=== PATIENT | female | born 1980 | race Two or more races ===

== ENCOUNTER 2020-09-18 09:57 | Outpatient (REF) | payer OTHER, SELFPAY ==
[2020-09-18 10:48] LABS: MANUAL DIFF FLAG NO
[2020-09-18 11:06] LABS: Basophils Percent Auto 0.4 % (0-2); Eosinophils Absolute Auto 0.2 X10*3/uL (0.0-0.4); Eosinophils Percent Auto 3.3 % (0-4); Hematocrit 38.1 % (37-47); Hemoglobin 12.1 g/dl (12.0-16.0); Imm Gran Abs Auto 0.02 X10*3/uL (0.00-0.03); Imm Gran Pct Auto 0.3 % (0.0-0.4); Lymphocytes Absolute Auto 1.7 X10*3/uL (1.2-4.9); Lymphocytes Percent Auto 24.4 % (20-40); Mean Corpuscular HGB Conc 31.8 g/dl (31.0-35.0); Mean Corpuscular Hemoglobin 25.5 pg (27.0-33.0); Mean Corpuscular Volume 80.2 fL (80-98); Monocytes Absolute Auto 0.7 X10*3/uL (0.1-1.2); Monocytes Percent Auto 10.7 % (2-11); Neutrophils Absolute Auto 4.2 X10*3/uL (2.0-8.3); Neutrophils Percent Auto 60.9 % (45-73); Platelet Count 330 X10*3/uL (160-400); Red Blood Count 4.75 X10*6/uL (4.20-5.50); Red Cell Distribution Width 13.7 % (11.0-16.0); White Blood Count 6.9 X10*3/uL (4.8-10.8)
[2020-09-18 11:17] LABS: Alanine Aminotransferase 14 U/L (0-31); Albumin Level 4.5 g/dL (3.5-5.0); Alkaline Phosphatase 72 U/L (39-117); Anion Gap 12 (12-20); Aspartate Amino Transferase 19 U/L (5-31); Bilirubin Total 0.5 mg/dL (0.0-1.0); Blood Urea Nitrogen 12 mg/dL (9-16); Calcium 9.3 mg/dL (8.4-10.2); Carbon Dioxide 27 mmol/L (22-29); Chloride 105 mmol/L (96-108); Cholesterol 208 mg/dL; Estimated Glomerular Filt Rate > 60; Glucose Fasting 96 mg/dL (60-99); HDL Cholesterol 56 mg/dL; LDL Cholesterol Calculated 134 mg/dl; Potassium 4.4 mmol/L (3.3-5.1); Sodium 140 mmol/L (135-145); Total Protein 7.1 g/dL (6.5-8.0); Triglycerides 91 mg/dL
[2020-09-18 11:40] LABS: Thyroid Stimulating Hormone 1.08 uIU/mL (0.32-4.0)
== END 2020-09-18 09:58 | disposition home or self-care (01) ==
LOC: HO.LAB 09:57
PROVIDERS: PCP Internal Medicine; Visit Provider Internal Medicine
DX: E66.01 Morbid (severe) obesity due to excess calories (principal); D64.9 Anemia, unspecified; L65.9 Nonscarring hair loss, unspecified; E78.5 Hyperlipidemia, unspecified
CPT/HCPCS: 36415; 80053; 80061; 84443; 85025

== ENCOUNTER 2020-10-24 13:21 | Outpatient (REF) | payer OTHER, SELFPAY ==
[2020-10-25 03:00] LABS: CT PCR NOT DETECTED (Not Detect.); NG PCR NOT DETECTED (Not Detect.)
[2020-10-25 09:45] LABS: BV Int Neg Control Negative (Negative); BV Int Pos Control Positive (Positive)
[2020-10-28 16:37] LABS: HPV mRNA E6/E7 rflx Not Detected (Not Detected)
== END 2020-10-24 13:22 | disposition home or self-care (01) ==
LOC: HO.LAB 13:21
PROVIDERS: PCP Internal Medicine; Visit Provider Advanced Practice Midwife
DX: Z01.419 Encounter for gynecological examination (general) (routine) without abnormal findings (principal); Z11.3 Encounter for screening for infections with a predominantly sexual mode of transmission; Z11.51 Encounter for screening for human papillomavirus (HPV); N92.6 Irregular menstruation, unspecified; N93.9 Abnormal uterine and vaginal bleeding, unspecified; L68.0 Hirsutism
CPT/HCPCS: 87480; 87491; 87510; 87591; 87624; 87660; 88142

== ENCOUNTER 2020-11-13 10:31 | Outpatient (REF) | payer OTHER, SELFPAY ==
--- NOTE | ~2020-11-13 | US_ITS ---
EXAMINATION: US PELVIS CLINICAL INFORMATION: Abnormal uterine vaginal bleeding. COMPARISON: None TECHNIQUE: Ultrasound of the pelvis is performed using both transabdominal and transvaginal transducers along with Doppler. Transvaginal imaging is performed due to inadequate visualization transabdominally. FINDINGS: The uterus measures 9 x 4 x 5 cm. Anteverted. Anteflexed. The endometrial thickness is measured by the new media strategist at 8 mm. The myometrium is heterogeneous. It could be a poorly defined 1.6 x 0.8 x 0.9 cm myometrial fibroid anterior mid body. This is hyperechoic and given the history, this could represent scarring. The right ovary is 3.7 x 2.2 x 2.4 cm. Volume 10 mL. There is a 2.5 x 1.6 x 1.6 cm cyst associated. Normal vascularity. The left ovary is 3.2 x 2.4 x 2.4 cm. Volume 10 mL. Normal-appearing. Normal ovarian vascularity. US/US pelvic and transvaginal IMPRESSION: Endometrial thickness 8 mm. This may be normal for mid to late phase of the cycle. Uterine echotexture is heterogeneous throughout but no defined fibroid. Focal area of hyperechogenicity in the mid body anterior could represent a focal fibroid described above versus changes associated with and scarring. Simple-appearing cyst associated with the right ovary 2.5 x 1.6 x 1.6 cm.
[2020-11-13 12:30] LABS: HCG Quantitative < 2 mIU/mL; Thyroid Stimulating Hormone 2.73 uIU/mL (0.32-4.0)
[2020-11-18 20:21] LABS: Prolactin 13.1 ng/mL
[2020-11-19 00:57] LABS: DHEA Sulfate 118 mcg/dL (23-266)
[2020-11-21 14:56] LABS: Testosterone, Free 7.9 pg/mL (0.1-6.4); Testosterone, Total 59 ng/dL (2-45)
== END 2020-11-13 10:32 | disposition home or self-care (01) ==
LOC: HO.US 10:31
PROVIDERS: PCP Internal Medicine; Visit Provider Advanced Practice Midwife
DX: N93.9 Abnormal uterine and vaginal bleeding, unspecified (principal); N92.6 Irregular menstruation, unspecified; L68.0 Hirsutism
CPT/HCPCS: 36415; 76830; 76856; 82627; 83498; 84146; 84402; 84403; 84443; 84702

== ENCOUNTER 2020-11-19 09:39 | Outpatient (REF) | payer OTHER, SELFPAY | END 2020-11-19 09:40 | disposition home or self-care (01) | LOC: HO.LAB 09:39 | PROVIDERS: PCP Internal Medicine; Visit Provider Advanced Practice Midwife | DX: N93.9 Abnormal uterine and vaginal bleeding, unspecified (principal) | CPT/HCPCS: 58100; 81025; 88305 ==

== ENCOUNTER 2020-11-20 16:09 | Outpatient (REF) | payer OTHER, SELFPAY ==
[2020-11-20 16:54] LABS: COVID-19 Test Negative (Negative); IDNOW Serial# 9DD0AD1C
== END 2020-11-20 16:10 | disposition home or self-care (01) ==
LOC: HO.LAB 16:09
PROVIDERS: Visit Provider Internal Medicine
DX: Z20.822 Contact with and (suspected) exposure to COVID-19 (principal)
CPT/HCPCS: 36415; 87635; C9803

== ENCOUNTER → 2020-11-27 15:45 | Outpatient (BNVA) | payer OTHER, SELFPAY | PROVIDERS: Visit Provider Advanced Practice Midwife ==

== ENCOUNTER 2020-12-19 08:44 | Outpatient (REF) | payer OTHER, SELFPAY ==
--- NOTE | ~2020-12-19 | MM_ITS ---
EXAMINATION: MM SCREENING DIGITAL BREAST TOMOSYNTHESIS, BILATERAL CLINICAL INFORMATION: Screening. Asymptomatic. The lifetime risk of breast cancer based on the Tyrer-Cuzick Model is 11.4%. COMPARISON: Mammography: None TECHNIQUE: Digital breast tomosynthesis is performed in both the craniocaudal and mediolateral oblique views along with computer-aided detection (CAD). Synthesized 2D images are generated from the tomosynthesis. FINDINGS: There are scattered areas of fibroglandular density (ACR BI-RADS breast composition Category b). There are no significant masses, abnormal calcifications, or other abnormalities. MM/MM tomosynthesis screening BI IMPRESSION: No specific mammographic evidence to suggest malignancy. ASSESSMENT: BI-RADS 1: Negative RECOMMENDATION: Routine annual mammography screening. This patient's information was entered into a reminder system with a target due date for their next mammogram.
== END 2020-12-19 08:45 | disposition home or self-care (01) ==
LOC: HO.MAMMO 08:44
PROVIDERS: Visit Provider Advanced Practice Midwife
DX: Z12.31 Encounter for screening mammogram for malignant neoplasm of breast (principal)
CPT/HCPCS: 77063; 77067

== ENCOUNTER 2021-12-22 15:58 | Outpatient (REF) | payer OTHER, SELFPAY ==
--- NOTE | ~2021-12-22 | MM_ITS ---
EXAMINATION: MM SCREENING DIGITAL BREAST TOMOSYNTHESIS, BILATERAL CLINICAL INFORMATION: Screening. Asymptomatic. The lifetime risk of breast cancer based on the Tyrer-Cuzick Model is 11%. COMPARISON: Mammography: 12/19/2020 (baseline) TECHNIQUE: Digital breast tomosynthesis is performed in both the craniocaudal and mediolateral oblique views along with computer-aided detection (CAD). Synthesized 2D images are generated from the tomosynthesis. FINDINGS: There are scattered areas of fibroglandular density (ACR BI-RADS breast composition Category b). There are no significant masses, abnormal calcifications, or other abnormalities. Breast tissue composition borders on predominantly fatty. Background stromal markings are normal. Parenchymal pattern is similar to baseline exam. The axilla and skin contours are unremarkable. MM/MM tomosynthesis screening BI IMPRESSION: No mammographic evidence of malignancy. ASSESSMENT: BI-RADS 1: Negative RECOMMENDATION: Routine annual mammography screening. This patient's information was entered into a reminder system with a target due date for their next mammogram.
== END 2021-12-22 15:59 | disposition home or self-care (01) ==
LOC: HO.MAMMO 15:58
PROVIDERS: Visit Provider Advanced Practice Midwife
DX: Z12.31 Encounter for screening mammogram for malignant neoplasm of breast (principal)
CPT/HCPCS: 77063; 77067

== ENCOUNTER 2022-04-08 14:45 | Outpatient (REF) | payer OTHER, SELFPAY ==
[2022-04-08 15:59] LABS: Alanine Aminotransferase 17 U/L (0-31); Albumin Level 4.7 g/dL (3.5-5.0); Alkaline Phosphatase 73 U/L (39-117); Anion Gap 15 (12-20); Aspartate Amino Transferase 33 U/L (5-31); Bilirubin Total 0.5 mg/dL (0.0-1.0); Blood Urea Nitrogen 18 mg/dL (9-16); Calcium 10.1 mg/dL (8.4-10.2); Carbon Dioxide 24 mmol/L (22-29); Chloride 103 mmol/L (96-108); Cholesterol 249 mg/dL; Estimated Glomerular Filt Rate > 60; Glucose Fasting 74 mg/dL (60-99); HDL Cholesterol 53 mg/dL; LDL Cholesterol Calculated 165 mg/dl; Potassium 4.3 mmol/L (3.3-5.1); Sodium 138 mmol/L (135-145); Total Protein 7.8 g/dL (6.5-8.0); Triglycerides 155 mg/dL
== END 2022-04-08 14:46 | disposition home or self-care (01) ==
LOC: HO.LAB 14:45
PROVIDERS: PCP Internal Medicine; Visit Provider Internal Medicine
DX: Z00.00 Encounter for general adult medical examination without abnormal findings (principal)
CPT/HCPCS: 36415; 80053; 80061

== ENCOUNTER → 2022-04-15 10:59 | Outpatient (BNVA) | payer OTHER, SELFPAY | PROVIDERS: PCP Internal Medicine; Visit Provider Advanced Practice Midwife | DX: Z13.89 Encounter for screening for other disorder (principal) ==

== ENCOUNTER 2022-05-20 14:18 | Outpatient (REF) | payer OTHER, SELFPAY ==
--- NOTE | ~2022-05-20 | US_ITS ---
EXAMINATION: US PELVIS CLINICAL INFORMATION: Abdominal distention; follow-up uterine fibroid; the last menstrual period was on 04/26/2022. COMPARISON: Pelvic ultrasound dated 11/13/2020. TECHNIQUE: Ultrasound of the pelvis is performed using both transabdominal and transvaginal transducers along with Doppler. Transvaginal imaging is performed due to inadequate visualization transabdominally. FINDINGS: Uterus: The uterus is anteverted and anteflexed. The uterus measures 8.9 x 4.3 x 4.2 cm. There is trace anechoic fluid noted within the endometrial canal. Nabothian cysts are seen within the cervix. The double wall endometrial thickness is 0.6 mm. The uterus is smooth in contour and has normal myometrial echogenicity. No visible fibroid. The previously identified fibroid is not redemonstrated. Adnexa: Both ovaries are visualized. There is normal color flow to the adnexa. There is no ovarian torsion. There is no pelvic ascites or fluid collection. Right ovary measures 4.4 x 3.1 x 2.9 cm, volume 20.7 mL. The right ovary contains a 3.3 x 2.8 x 2.3 cm dominant simple cyst. This is a benign finding, for which no imaging follow-up is recommended. Left ovary measures 2.4 x 2.3 x 2.0 cm, volume 5.8 mL. There are simple follicles, the largest measuring 7 mm, with exophytic appearance. US/US pelvic and transvaginal IMPRESSION: 1. No uterine fibroid is presently seen. 2. There are incidental bilateral ovarian cysts and follicles, for which no imaging follow-up is recommended. 3. There is trace nonspecific fluid within the endometrial canal. 4. Nabothian cysts are seen within the cervix.
== END 2022-05-20 14:19 | disposition home or self-care (01) ==
LOC: HO.US 14:18
PROVIDERS: Visit Provider Advanced Practice Midwife
DX: R14.0 Abdominal distension (gaseous) (principal)
CPT/HCPCS: 76830; 76856

== ENCOUNTER → 2022-06-11 13:15 | Outpatient (BNVA) | payer OTHER, SELFPAY | PROVIDERS: PCP Internal Medicine; Visit Provider Advanced Practice Midwife | DX: Z71.2 Person consulting for explanation of examination or test findings (principal); R14.0 Abdominal distension (gaseous) | CPT/HCPCS: 99212 ==

== ENCOUNTER 2023-02-01 15:16 | Outpatient (REF) | payer OTHER, SELFPAY ==
--- NOTE | ~2023-02-01 | MM_ITS ---
EXAMINATION: MM SCREENING DIGITAL BREAST TOMOSYNTHESIS, BILATERAL CLINICAL INFORMATION: Screening. Asymptomatic. COMPARISON: Mammography: This study is compared with prior exams dating back to 2020. TECHNIQUE: Digital breast tomosynthesis is performed in both the craniocaudal and mediolateral oblique views along with computer-aided detection (CAD). Synthesized 2D images are generated from the tomosynthesis. FINDINGS: The breasts are almost entirely fatty (ACR BI-RADS breast composition Category a). There are no significant masses, abnormal calcifications, or other abnormalities. MM/MM tomosynthesis screening BI IMPRESSION: No mammographic evidence of malignancy. ASSESSMENT: BI-RADS BI-RADS 1 - Negative RECOMMENDATION: Routine annual mammography screening. 1 year F/U This examination should not preclude the clinical evaluation of a suspicious palpable abnormality. This patient's information was entered into a reminder system with a target due date for their next mammogram.
== END 2023-02-01 15:17 | disposition home or self-care (01) ==
LOC: HO.MAMMO 15:16
PROVIDERS: PCP Internal Medicine; Visit Provider Advanced Practice Midwife
DX: Z12.31 Encounter for screening mammogram for malignant neoplasm of breast (principal)
CPT/HCPCS: 77063; 77067

== ENCOUNTER → 2023-02-01 15:45 | Outpatient (BNV) | payer OTHER, SELFPAY | PROVIDERS: PCP Internal Medicine; Visit Provider Radiology Diagnostic Radiology | DX: Z12.31 Encounter for screening mammogram for malignant neoplasm of breast (principal) | CPT/HCPCS: 77063; 77067 ==

== ENCOUNTER 2023-04-05 17:01 | Outpatient (AMB) | payer OTHER, SELFPAY ==
[2023-04-05 17:02] VITALS: BP 122/84; BMI 48.6
--- NOTE | 2023-04-05 17:02 | MHC.PC.OV ---
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 Glass Required: No Accompanied by: Self / Same As Patient Allergies drospirenone [From IZZY (28)] Adverse Reaction (Unknown, Verified 04/05/23 17:07) Palpitations ethinyl estradiol [From IZZY (28)] Adverse Reaction (Unknown, Verified 04/05/23 17:07) Palpitations Medication List - Last Reconciled 04/05/23 by Mallory Chacon MD atorvastatin 10 mg PO BEDTIME 90 days spironolactone 50 mg PO BID Tobacco use date assessed: 04/05/23 Dental Screening Dental Screen Date: 04/05/23 Did you have a dental visit in the last 12 months?: No Did you have a dental problem in the last 6 months where you did not have access to dental care?: No Was dental information given to patient?: Patient has dentist HPI HPI Comments History of Present Illness Details This is a 42-year-old female with morbid obesity that comes for her physical exam. Her BMI is 48.6 and was advised to diet and exercise. She declines weight loss surgery. Last mammogram was January 2023. Last Pap smear was 2020 and was normal. No chest pain or shortness of breath. [facility] Medical History PCOS (polycystic ovarian syndrome) Hair loss Morbid obesity Surgical History Hx of section History of tonsillectomy Family History Father Hypertension Mother Hypertension Glaucoma Sister Diabetes Paternal Uncle FH: prostate cancer Social History Housing: Apartment Alcohol intake: current Alcohol intake frequency: holidays/special occasions only Alcohol type: beer and wine Patient Tobacco Use Status: Never used Tobacco e-Cigarette/Vaping Use: Never Used Second Hand Smoke Exposure: No service: No Current occupational status: employed Current occupational exposures/hazards: No Sexual orientation: Straight/Heterosexual Gender identity: Female Cognitive needs: No Hearing needs: No Vision needs: No Female Reproductive History Menstrual Age of Menarche: 11 Questionnaire PHQ-9 Over the last 2 weeks, how often have you been bothered by any of the following problems? 1. Little interest or pleasure in doing things: not at all 2. Feeling down, depressed, or hopeless: not at all 3. Trouble falling or staying asleep, or sleeping too much: not at all 4. Feeling tired or having little energy: not at all 5. Poor appetite or overeating: not at all 6. Feeling bad about yourself - or that you are a failure or have let yourself or your family down: not at all 7. Trouble concentrating on things, such as reading the newspaper or watching television: not at all 8. Moving or speaking so slowly that other people could have noticed. Or the opposite - being so fidgety or restless that you have been moving around a lot more than usual: not at all 9. Thoughts that you would be better off or of hurting yourself in some way: not at all Total score: 0 Depression Screening Interpretation: Negative Depression Screening Done: Yes 60918 - PHQ-9 Billing: Yes Source: Developed by Drs. Nael Hooker, Maye Farley, Edmar Pena and colleagues, with an educational fred from [employer]. Thrive Questionnaire Date Thrive assessed: 04/05/23 I am a: Patient What is your living situation today?: I have a steady place to live Within the past 12 months, did the food you bought not last and you didn't have the money to get more?: Never true Within the past 12 months, did you worry whether your food would run out before you got money to buy more?: Never true Do you have trouble paying for medicines?: No Do you have trouble getting transportation to medical appointments?: No Do you have trouble paying your heating and electricity bill?: No Do you have trouble taking care of your child, family member or friend?: No Do you have trouble with day-to-day activities such as bathing, preparing meals, shopping, managing finances, etc.?: No Are you currently unemployed and looking for a job?: No Are you interested in more education?: No Please select the resources that you would like help with: None Currently or been in a relationship where the following occur: no concerns reported AUDIT C Alcohol Use Questionnaire (AUDIT-C) 1. How often do you have a drink containing alcohol?: Monthly or less 2. How many drinks containing alcohol do you have on a typical day when you are drinking?: 1 or 2 3. How often do you have six or more drinks on one occasion?: Never Total Score: 1 Score Reviewed/Action Taken: No ANAND-7 AMB Questionnaire ANAND-7 Date ANAND - 7 assessed: 04/05/23 Feeling nervous, anxious, or on edge: 0 = Not at all Not being able to stop or control worryin = Not at all Worrying too much about different things: 0 = Not at all Trouble relaxin = Not at all Being so restless that it is hard to sit still: 0 = Not at all Becoming easily annoyed or irritable: 0 = Not at all Feeling afraid as if something awful might happen: 0 = Not at all Total ANAND-7 score (0-4 normal; 5-9 mild; 10-14 moderate; 15-21 severe): 0 Source: Developed by Drs. Nael Hooker, Maye Farley, Edmar Pena and colleagues, with an educational fred from [employer]. ANAND-7 Assessment Billing ANAND-7 Assessment Tool: ANAND-7 Assessment 65084 Review of Systems Const All systems reviewed & are unremarkable except as noted in HPI and below Eyes Reports no additional complaints, Denies change in vision and Denies other visual disturbances Card Denies chest pain at rest, Denies chest pain with activity, Denies edema, Denies irregular heart rhythm, Denies claudication, Denies dyspnea, Denies dyspnea on exertion, Denies orthopnea, Denies paroxysmal nocturnal dyspnea and Denies slow heart rate Resp Denies cough, Denies dyspnea and Denies dyspnea on exertion GI Denies abdominal pain, Denies change in bowel habits, Denies excessive flatus, Denies nausea and Denies vomiting Denies urinary incontinence, Denies urinary hesitancy and Denies urinary urgency Musc Denies abnormal gait, Denies atrophy, Denies deformity and Denies limited range of motion Skin/Breast Denies bleeding lesions, Denies changing lesions and Denies rash Neuro Denies abnormal gait and Denies lack of coordination Physical exam (Primary Care) Vital Signs: Last Vital Signs BP 122/84 04/05/23 17:02 BMI result Body Mass Index 48.6 Tobacco/Smoking Status: Tobacco use Status Tobacco use date assessed 04/05/23 04/05/23 17:08 Patient Tobacco Use Status Never used Tobacco 04/05/23 17:08 e-Cigarette/Vaping Use Never Used 04/05/23 17:08 PHQ-9: PHQ-9 Score PHQ-9: Total score 0 04/05/23 17:22 Depression Screening Interpretation: Negative Thrive Assessment: Date of Thrive Assessment Date Thrive assessed 04/05/23 04/05/23 17:08 Currently or been in a relationship where the following occur: no concerns reported Const Orientation/consciousness: patient oriented x3 HENMT Head: Yes normal to inspection, Yes normocephalic and Yes atraumatic Ears: external ears normal Eyes General: appearance normal, both eyes and all related structures Eyelids: Yes eyelids normal Conjunctivae: conjunctivae normal Neck Neck: Yes normal visual inspection and Yes supple Resp Effort & Inspection: normal respiratory effort Auscultation: clear to auscultation bilaterally Cardio Jugular venous distension: no JVD Rate: regular rate Rhythm: regular rhythm Heart sounds: S1 normal heart sound present and S2 normal heart sound present GI Inspection: Yes normal to inspection Palpation (GI): Soft to palpation and nontender Auscultation: normal bowel sounds Skin General skin exam: no rashes or lesions noted Neuro General: patient oriented x3 and no focal motor deficits Extrem General: Yes full ROM Psych Appearance: grossly normal Office Procedures Flu Questionnaire Does the patient have a severe egg allergy?: No Does the patient have severe life threatening allergies?: No Does the patient have a fever or illness today?: No Has the patient ever had Guillain-[place] Syndrome?: No Has the patient ever had any past reaction to a flu shot?: No Immunizations flu vacc [id number] 6mos up(PF) 60 mcg(15 mcgx4)/0.5 mL IM syringe Performing Provider: Mallory Chacon MD Performing Location: [facility] Administered by: LUIS Washington on 04/05/23 17:22 Dose Route Admin Location Dispensed Lot Number Expiration Date NDC Casework Manager 0.5 mL IM Right Deltoid 0.5 mL [id number] 09/26/23 27993-150-73 [employer] VIS Given Date VIS Provided VIS Publication Date 04/05/23 Single Vaccine 20 Eligibility Eligibility Date Funding Source Not [facility] Eligible 04/05/23 Private Assessment and Plan Assessment & Plan (1) Encounter for physical examination: Code(s): Z00.00 - Encounter for general adult medical examination without abnormal findings Plan: Repeat in a year. (2) Morbid obesity: Code(s): E66.01 - Morbid (severe) obesity due to excess calories Plan: Start diet and exercise. BMI goal is less than 30. Orders: Orders Lipid Panel Today E78.5 - Hyperlipidemia, unspecified, Z00.00 - Encounter for general adult medical examination without abnormal findings Comprehensive [place]. Panel Fast Today Z00.00 - Encounter for general adult medical examination without abnormal findings Influenza [id number] Immunization Today Z23 - Encounter for immunization Vitamin D 25-OH Total Today E55.9 - Vitamin D deficiency, unspecified Coding Level of Care Code Est Pt Prev Care 40-64y(85478) Diagnoses Encounter for physical examination Z00.00 Morbid obesity E66.01 Additional Codes ANAND-7 Assessment Billing - ANAND-7 Assessment Tool: ANAND-7 Assessment [id number] ([id number]) Time Spent (min) 32
== END 2023-04-05 17:21 | disposition home or self-care (01) ==
PROVIDERS: Visit Provider Internal Medicine
DX: Z00.00 Encounter for general adult medical examination without abnormal findings (principal); E66.01 Morbid (severe) obesity due to excess calories; Z68.42 Body mass index [BMI] 45.0-49.9, adult; Z23 Encounter for immunization; Z90.89 Acquired absence of other organs
CPT/HCPCS: 90471; 90686; 99396

== ENCOUNTER 2023-04-22 07:24 | Outpatient (REF) | payer OTHER, SELFPAY ==
[2023-04-22 08:53] LABS: Alanine Aminotransferase 23 U/L (0-31); Albumin Level 4.5 g/dL (3.5-5.0); Alkaline Phosphatase 58 U/L (39-117); Anion Gap 13 (12-20); Aspartate Amino Transferase 25 U/L (5-31); Bilirubin Total 0.6 mg/dL (0.0-1.0); Blood Urea Nitrogen 11 mg/dL (9-16); Calcium 9.9 mg/dL (8.4-10.2); Carbon Dioxide 25 mmol/L (22-29); Chloride 104 mmol/L (96-108); Cholesterol 137 mg/dL (<200); Estimated Glomerular Filt Rate > 60; Glucose Fasting 79 mg/dL (60-99); HDL Cholesterol 39 mg/dL (>40); LDL Cholesterol Calculated 84 mg/dL (<100); Potassium 4.2 mmol/L (3.3-5.1); Sodium 138 mmol/L (135-145); Total Protein 7.7 g/dL (6.5-8.0); Triglycerides 70 mg/dL (<150)
[2023-04-22 09:01] LABS: Vitamin D 25-OH Total 25.1 ng/mL (>30)
[2023-04-23 09:25] LABS: BV Int Neg Control Negative (Negative); BV Int Pos Control Positive (Positive)
== END 2023-04-22 07:25 | disposition home or self-care (01) ==
LOC: HO.LAB 07:24
PROVIDERS: Advanced Practice Midwife; PCP Internal Medicine; Visit Provider Internal Medicine
DX: N89.8 Other specified noninflammatory disorders of vagina (principal); E78.5 Hyperlipidemia, unspecified; E55.9 Vitamin D deficiency, unspecified
CPT/HCPCS: 36415; 80053; 80061; 82306; 87480; 87510; 87660; 99396

== ENCOUNTER 2023-04-22 10:57 | Outpatient (AMB) | payer OTHER, SELFPAY ==
--- NOTE | 2023-04-22 11:03 | A.OFFVIS_ITS ---
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 Doing well with no concerns. She tries to eat healthy and stays active with exercise. History of PCOS. Regular monthly menses while on Spironolactone-ordered by her wellness nurse rn. Currently is not sexually active in over 3 years. She admit to vaginal itching and irritation. STI screening offered; she declined. Denies family history of breast, ovarian or colon cancer. Last pap smear 2020, negative. Mammogram: 2022. [facility] Medical History PCOS (polycystic ovarian syndrome) Hair loss Morbid obesity Surgical History Hx of section History of tonsillectomy Family History Father Hypertension Mother Hypertension Glaucoma Sister Diabetes Paternal Uncle FH: prostate cancer Social History Housing: Apartment Alcohol intake: current Alcohol intake frequency: holidays/special occasions only Alcohol type: beer and wine Patient Tobacco Use Status: Never used Tobacco e-Cigarette/Vaping Use: Never Used Second Hand Smoke Exposure: No service: No Current occupational status: employed Current occupational exposures/hazards: No Sexual orientation: Straight/Heterosexual Gender identity: Female Cognitive needs: No Hearing needs: No Vision needs: No Female Reproductive History Menstrual Age of Menarche: 11 Duration of menses: 6-7 days Date of last menstrual period: 03/31/23 control method: none Total pregnancies: 1 Full term: 1 Number of Living Children: 1 Date of last pap smear: 10/24/20 (neg pap and hpv) Date of Mammogram: 02/01/23 (Birad 1) Review of Systems Const All systems reviewed & are unremarkable except as noted in HPI and below Reports as per HPI Eyes Reports no additional complaints ENT Reports no additional complaints Card Reports no additional complaints Resp Reports no additional complaints GI Reports as per HPI and Reports no additional complaints Reports as per HPI Musc Reports no additional complaints Skin/Breast Reports as per HPI Neuro Reports no additional complaints Psych Reports no additional complaints Endo Reports no additional complaints Gerardo/Lymph Reports no additional complaints Aller/Immun Reports no additional complaints Physical Exam Vital Signs: Last Vital Signs BP 114/72 04/22/23 11:04 BMI result Body Mass Index 44.8 Const General: cooperative, healthy appearing, no acute distress, well developed and alert Orientation/consciousness: patient oriented x3 HEENT Head: Yes normal to inspection Eyes General: appearance normal, both eyes and all related structures Neck Neck: Yes normal visual inspection Thyroid: Thyroid normal Chest Chest palpation & inspection: normal inspection of the chest and other (no puckering, dimpling, peau de orange, retraction, discharge, masses) Breast/axilla inspection: normal inspection of the breasts Breast/axilla palpation: normal palpation of the breasts Resp Effort & Inspection: normal respiratory effort GI Inspection: Yes normal to inspection Palpation (GI): Soft to palpation Rectal Exam - Female: deferred Other: Bilateral labial erythema and mild edema, shaven. General: Yes bladder normal to palpation External Female Exam: normal external appearance and normal appearance of the urethra Speculum Exam - Vagina: normal appearance of the vagina, normal palpation and abnormal vaginal discharge (White and clumpy) Speculum Exam - Cervix: normal appearance of the cervix and normal palpation Bimanual exam- vagina & uterus: normal bimanual exam, normal palpation, uterine size normal, bladder normal to palpation, normal palpation and non-tender Bimanual Exam- Adnexa, other: no masses Skin General skin exam: no rashes or lesions noted Rashes: no rashes Neuro General: patient oriented x3 Cognition (Neuro): normal cognition Extrem General: Yes normal to inspection Psych Attitude: cooperative Thought process: Normal thought process present Assessment & Plan Assessment & Plan (1) Encounter for well woman exam with routine gynecological exam: Code(s): Z01.419 - Encounter for gynecological examination (general) (routine) without abnormal findings (2) Vaginal yeast infection: Code(s): B37.31 - Acute candidiasis of vulva and vagina Plan Discussed: Current recommendations for pap smears per ASCCP guidelines. Breast awareness and periodic breast exams. Maintain a healthy lifestyle including a well balanced diet and routine exercise. Use condoms for STI and prevention if becomes sexually active, call for appointment for control consult. Mammogram yearly. Colonoscopy >45, or at risk sooner. Discussed: Monitor menstrual cycles, report any unscheduled bleeding, bleeding episodes <21 days apart or heavy/prolonged menstrual bleeding. Call the office for a follow up for any concerns. Denies any contraindications to Diflucan use, Rx sent in. Instructions: Clean with warm water, no soaps, shaving or scented products. Wear loose, cotton underclothes, avoid tight outer clothing. Air when possible. No coitus until well healed. Complete all medications as prescribed. Await final pending results for any changes in the plan of care. Call the office if there is no improvement in 24-48hrs., or if worsening symptoms. All of her questions and concerns were addressed to the best of my ability. 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 This note is constructed using voice recognition software. While every effort has been made to ensure accuracy, audograph operator errors may have been included. Orders: Orders Bacterial Vaginosis Panel Today N89.8 - Other specified noninflammatory disorders of vagina Medications: New fluconazole 150 mg PO ONCE 1 day 1 tab 1RF personal Coding Level of Care Code Est Pt Prev Care 40-64y(94789) Diagnoses Encounter for well woman exam with routine gynecological exam Z01.419 Vaginal yeast infection B37.31
[2023-04-22 11:04] VITALS: BP 114/72; BMI 44.8
== END 2023-04-22 11:43 | disposition home or self-care (01) ==
PROVIDERS: Visit Provider Advanced Practice Midwife
DX: Z01.419 Encounter for gynecological examination (general) (routine) without abnormal findings (principal); B37.31 Acute candidiasis of vulva and vagina
CPT/HCPCS: 99396

== ENCOUNTER 2024-02-07 14:51 | Outpatient (REF) | payer OTHER, SELFPAY ==
--- NOTE | ~2024-02-07 | MM_ITS ---
EXAMINATION: MM SCREENING DIGITAL BREAST TOMOSYNTHESIS, BILATERAL CLINICAL INFORMATION: Screening. Asymptomatic. COMPARISON: Mammography: Comparison is made with available priors TECHNIQUE: Digital breast mammography with tomosynthesis is performed in both the craniocaudal and mediolateral oblique views along with computer-aided detection (CAD). FINDINGS: There are scattered areas of fibroglandular density (ACR BI-RADS breast composition Category b). There are no significant masses, abnormal calcifications, or other abnormalities. MM/MM tomosynthesis screening BI IMPRESSION: No mammographic evidence of malignancy. ASSESSMENT: BI-RADS BI-RADS 1 - Negative RECOMMENDATION: Routine annual mammography screening. 1 year F/U This examination should not preclude the clinical evaluation of a suspicious palpable abnormality. This patient's information was entered into a reminder system with a target due date for their next mammogram. Electronically signed by: Tammie Moreira DO 02/16/2024 12:07 PM [facility]
== END 2024-02-07 14:52 | disposition home or self-care (01) ==
LOC: HO.MAMMO 14:51
PROVIDERS: PCP Internal Medicine; Visit Provider Internal Medicine
DX: Z12.31 Encounter for screening mammogram for malignant neoplasm of breast (principal)
CPT/HCPCS: 77063; 77067

== ENCOUNTER → 2024-02-07 15:15 | Outpatient (BNV) | payer OTHER, SELFPAY | PROVIDERS: PCP Internal Medicine; Visit Provider Internal Medicine | DX: Z12.31 Encounter for screening mammogram for malignant neoplasm of breast (principal) | CPT/HCPCS: 77063; 77067 ==

== ENCOUNTER 2024-04-06 17:18 | Outpatient (AMB) | payer OTHER, SELFPAY ==
--- NOTE | 2024-04-06 17:29 | MHC.PC.OV ---
Vital Signs 04/06/24 17:31 Height 5 ft 4 in Weight 252 lb BMI 43.3 BP 122/80 Blood Pressure Location Lt brachial Position Sitting Intake Visit Reasons: pe Intake Note: Patient here for a physical exam Paint Tester Required: No Accompanied by: Self / Same As Patient Allergies drospirenone [From IZZY (28)] Adverse Reaction (Unknown, Verified 04/06/24 17:42) Palpitations ethinyl estradiol [From IZZY (28)] Adverse Reaction (Unknown, Verified 04/06/24 17:42) Palpitations Medication List - Last Reconciled 04/06/24 by Mallory Chacon MD atorvastatin 10 mg PO BEDTIME 90 days cholecalciferol (vitamin D3) 25 mcg PO DAILY 90 days spironolactone 100 mg PO DAILY Tobacco use date assessed: 04/06/24 Dental Screening Dental Screen Date: 04/06/24 Did you have a dental visit in the last 12 months?: Yes Did you have a dental problem in the last 6 months where you did not have access to dental care?: No Was dental information given to patient?: Patient has dentist HPI HPI Comments History of Present Illness Details The patient is a 43-year-old female presenting for her physical exam. She reported experiencing discomfort in both feet, with more significant pain in the right foot, following physical activity, such as walking. The discomfort does not occur during the walk but begins when she resumes walking after rest. She experiences substantial irritation that persists post-activity. She has a history of using comfortable shoes during physical activities, but this has not alleviated her symptoms. There have been no previous interventions documented for this condition. Mammogram done in January which was negative. Pap smear done 2020. She is morbidly obese and was advised to diet and exercise. Declines bariatric surgery. - Discussion regarding screening intervals for mammography and Pap smear, with a noted negative Pap smear allowing for a reduced frequency of the test. - Patient is on atorvastatin 10 mg for cholesterol management. - Vitamin D supplementation and spironolactone 100 mg for PCOS. - Advised on annual pelvic examination. [facility] Medical History (Updated 04/06/24 @ 17:52 by Mallory Chacon MD) PCOS (polycystic ovarian syndrome) Hair loss Morbid obesity Surgical History Hx of section History of tonsillectomy Family History Father Hypertension Mother Hypertension Glaucoma Sister Diabetes Paternal Uncle FH: prostate cancer Social History Housing: Apartment Alcohol intake: current Alcohol intake frequency: holidays/special occasions only Alcohol type: beer and wine Patient Tobacco Use Status: Never used Tobacco e-Cigarette/Vaping Use: Never Used Second Hand Smoke Exposure: No service: No Current occupational status: employed Current occupational exposures/hazards: No Sexual orientation: Straight/Heterosexual Gender identity: Female Cognitive needs: No Hearing needs: No Vision needs: No Female Reproductive History Menstrual Age of Menarche: 11 Questionnaire PHQ-9 Over the last 2 weeks, how often have you been bothered by any of the following problems? 1. Little interest or pleasure in doing things: not at all 2. Feeling down, depressed, or hopeless: not at all 3. Trouble falling or staying asleep, or sleeping too much: not at all 4. Feeling tired or having little energy: not at all 5. Poor appetite or overeating: not at all 6. Feeling bad about yourself - or that you are a failure or have let yourself or your family down: not at all 7. Trouble concentrating on things, such as reading the newspaper or watching television: not at all 8. Moving or speaking so slowly that other people could have noticed. Or the opposite - being so fidgety or restless that you have been moving around a lot more than usual: not at all 9. Thoughts that you would be better off or of hurting yourself in some way: not at all Total score: 0 Depression Screening Interpretation: Negative Depression Screening Done: Yes 50303 - PHQ-9 Billing: Yes Source: Developed by Drs. Nael Hookre, Maye Farley, Edmar Pena and colleagues, with an educational fred from [employer]. Thrive Questionnaire Date Thrive assessed: 04/06/24 I am a: Patient What is your living situation today?: I have a steady place to live Within the past 12 months, did the food you bought not last and you didn't have the money to get more?: Never true Within the past 12 months, did you worry whether your food would run out before you got money to buy more?: Never true Do you have trouble paying for medicines?: No Do you have trouble getting transportation to medical appointments?: No Do you have trouble paying your heating and electricity bill?: No Do you have trouble taking care of your child, family member or friend?: No Do you have trouble with day-to-day activities such as bathing, preparing meals, shopping, managing finances, etc.?: No Are you currently unemployed and looking for a job?: No Are you interested in more education?: No Please select the resources that you would like help with: None THRIVE Score: 0 AUDIT C Alcohol Use Questionnaire (AUDIT-C) 1. How often do you have a drink containing alcohol?: Monthly or less 2. How many drinks containing alcohol do you have on a typical day when you are drinking?: 1 or 2 3. How often do you have six or more drinks on one occasion?: Never Total Score: 1 Score Reviewed/Action Taken: No ANAND-7 AMB Questionnaire ANAND-7 Date ANAND - 7 assessed: 04/06/24 Feeling nervous, anxious, or on edge: 1 = Several days Not being able to stop or control worryin = Not at all Worrying too much about different things: 0 = Not at all Trouble relaxin = Not at all Being so restless that it is hard to sit still: 0 = Not at all Becoming easily annoyed or irritable: 0 = Not at all Feeling afraid as if something awful might happen: 0 = Not at all Total ANAND-7 score (0-4 normal; 5-9 mild; 10-14 moderate; 15-21 severe): 1 Source: Developed by Drs. Nael Hooker, Maye Farley, Edmar Pena and colleagues, with an educational fred from [employer]. ANAND-7 Assessment Billing ANAND-7 Assessment Tool: ANAND-7 Assessment 90886 Review of Systems Const All systems reviewed & are unremarkable except as noted in HPI and below Card Denies chest pain at rest, Denies chest pain with activity, Denies edema, Denies irregular heart rhythm, Denies claudication, Denies dyspnea, Denies dyspnea on exertion, Denies orthopnea, Denies paroxysmal nocturnal dyspnea and Denies slow heart rate Resp Denies cough, Denies dyspnea and Denies dyspnea on exertion Denies urinary incontinence, Denies urinary hesitancy and Denies urinary urgency Musc Denies atrophy, Denies deformity and Denies limited range of motion Skin/Breast Denies bleeding lesions, Denies changing lesions and Denies rash Physical exam (Primary Care) Vital Signs: Last Vital Signs BP 122/80 04/06/24 17:31 BMI result Body Mass Index 43.3 BMI Assessment/Plan discussion: High BMI High, discussed plan: lifestyle, weight reduction, dietary and physical activity Tobacco/Smoking Status: Tobacco use Status Tobacco use date assessed 04/06/24 04/06/24 17:38 Patient Tobacco Use Status Never used Tobacco 04/06/24 17:38 e-Cigarette/Vaping Use Never Used 04/06/24 17:38 PHQ-9: PHQ-9 Score PHQ-9: Total score 0 04/06/24 17:46 Depression Screening Interpretation: Negative Thrive Assessment: Date of Thrive Assessment Date Thrive assessed 04/06/24 04/06/24 17:38 [facility] Head: Yes normal to inspection, Yes normocephalic and Yes atraumatic Ears: external ears normal Mouth: lip normal Eyes General: appearance normal, both eyes and all related structures Eyelids: Yes eyelids normal Conjunctivae: conjunctivae normal Neck Neck: Yes normal visual inspection and Yes supple Resp Effort & Inspection: normal respiratory effort Auscultation: clear to auscultation bilaterally Cardio Jugular venous distension: no JVD Rate: regular rate Rhythm: regular rhythm Heart sounds: S1 normal heart sound present and S2 normal heart sound present GI Inspection: Yes normal to inspection Palpation (GI): Soft to palpation and nontender Auscultation: normal bowel sounds Skin General skin exam: no rashes or lesions noted Neuro General: no focal motor deficits Extrem General: Yes full ROM Psych Appearance: grossly normal Office Procedures Flu Questionnaire Does the patient have a severe egg allergy?: No Immunizations Fluarix Triv [id number] (PF) 45 mcg (15 mcg x 3)/0.5 mL IM syringe Performing Provider: Mallory Chacon MD [facility] Documented (not given) by: LUIS [place] on 04/06/24 17:40 Reason Not Given: Patient Refused Coding Level of Care Code Est Pt Level 3 (67023) Est Pt Prev Care 40-64y(44018) Diagnoses Encounter for physical examination Z00.00 Morbid obesity E66.01 Right foot pain M79.671 Left foot pain M79.672 Additional Codes ANAND-7 Assessment Billing - ANAND-7 Assessment Tool: ANAND-7 Assessment 84786 ([id number]) PHQ-9 - 18113 - PHQ-9 Billing: Yes ([id number]) Time Spent (min) 31 Assessment & Plan Assessment & Plan (1) Encounter for physical examination: Code(s): Z00.00 - Encounter for general adult medical examination without abnormal findings Category: Medical (2) Morbid obesity: Code(s): E66.01 - Morbid (severe) obesity due to excess calories Category: Medical (3) Right foot pain: Code(s): M79.671 - Pain in right foot Category: Medical (4) Left foot pain: Code(s): M79.672 - Pain in left foot Category: Medical Plan - Imaging x-ray) of both feet to assess for potential inflammation or other structural abnormalities. - Continue current management of hyperlipidemia and PCOS with atorvastatin and spironolactone. - Annual follow-up for pelvic examination; Pap smear every five years due to previous negative results. - Reevaluate based on imaging results and consider orthopedic or podiatric referral if discomfort persists. Patient was informed and verbally consented to the use of an ambient scribe for clinic note documentation during this visit. I discussed with the patient the plan to obtain x-rays of both feet to investigate the cause of her foot discomfort further. We reviewed the frequency of Pap smears and ensured compliance with current guidelines. I emphasized the continuation of her current medication regimen for hyperlipidemia and PCOS, stressing the importance of long-term management. We agreed on the need for an annual pelvic exam and reviewed the potential need for further specialist evaluation depending on the outcomes of the foot imaging. Orders: Orders Influenza [id number] Immunization Today Z23 - Encounter for immunization Vitamin D 25-OH Total Today E55.9 - Vitamin D deficiency, unspecified XR foot LT 2V Today M79.672 - Pain in left foot Lipid Panel Today E78.5 - Hyperlipidemia, unspecified Comprehensive [place]. Panel Fast Today Z00.00 - Encounter for general adult medical examination without abnormal findings XR foot RT 2V Today M79.671 - Pain in right foot Patient Instructions: - Maintain current medication regimen as prescribed. - Attend scheduled imaging appointment for foot evaluation. - Continue wearing comfortable footwear and monitor any changes in symptoms. - Follow up for annual pelvic examination and routine health maintenance. - Report any worsening of symptoms or new concerns promptly.
[2024-04-06 17:31] VITALS: BP 122/80; BMI 43.3
== END 2024-04-06 17:52 | disposition home or self-care (01) ==
PROVIDERS: PCP Internal Medicine; Visit Provider Internal Medicine
DX: Z00.00 Encounter for general adult medical examination without abnormal findings (principal); M79.671 Pain in right foot; M79.672 Pain in left foot; E66.01 Morbid (severe) obesity due to excess calories; Z68.41 Body mass index [BMI] 40.0-44.9, adult

== ENCOUNTER → 2024-04-06 17:18 | Outpatient (BNVA) | payer OTHER, SELFPAY | PROVIDERS: PCP Internal Medicine; Visit Provider Internal Medicine | DX: Z00.00 Encounter for general adult medical examination without abnormal findings (principal); E66.01 Morbid (severe) obesity due to excess calories; M79.671 Pain in right foot; M79.672 Pain in left foot; Z68.41 Body mass index [BMI] 40.0-44.9, adult | CPT/HCPCS: 96127; 99212; 99396 ==

== ENCOUNTER 2024-07-19 10:52 | Outpatient (REF) | payer OTHER, SELFPAY ==
--- NOTE | ~2024-07-19 | XR_ITS ---
CLINICAL HISTORY: M79.671 - Pain in right foot Three views of each foot Comparison: None Findings: Right foot: Bones intact. No dislocations. No significant loss of joint space. Osteophytes noted arising from the calcaneus. There is also a somewhat prominent osteophyte along the medial cuneiform dorsally, lateral view. No ankle effusion. No radiopaque foreign body. Left foot: Bones intact. No dislocations. No significant loss of joint space. Calcaneal osteophytes noted. No ankle effusion. No radiopaque foreign body. IMPRESSION: 1. No acute findings. 2. Chronic changes bilaterally. This document has been electronically signed by: Steve Scott MD on 07/20/2024 21:17:23
--- OUTSIDE RECORDS SUMMARY | 2024-07-19 13:02 | XMS_ITS | Clinical Summary ---
Author Organization [employer] Address [address] [facility] 7 [place] [address] Care Team Providers Care Refractory Grinder Operator Name Role Phone Unavailable Primary Care Provider Unavailabl e Allergies No known active allergies Medications atorvastatin (Lipitor) 10 MG tablet Take 10 mg by mouth at bedtime. 05/09/2023 Active spironolactone (Aldactone) 50 MG tablet Take 50 mg by mouth 2 times daily. 08/15/2023 Active D3-1000 25 MCG (1000 UT) capsule Take 25 mcg by mouth Once per day. 07/19/2023 Active clonazePAM (KlonoPIN) 0.5 MG tablet Take 0.5 tablets (0.25 mg) by mouth 2 times daily. 30 tablet 09/09/2023 Active ibuprofen 600 MG tablet Take 1 tablet (600 mg) by mouth every 6 (six) hours if needed for mild pain for up to 20 doses. 20 tablet 09/09/2023 Active Active Problems Problem Noted Date Diagnosed Date Dental calculus 09/09/2023 MPDS (myofascial pain dysfunction syndrome) 08/27 Social History Tobacco Use Types Packs/Day Years Used Date Smoking Tobacco: Never Smokeless Tobacco: Never Tobacco Cessation:Counseling Given: Not Answered Comments Unknown Sex and Gender Information Value Date Recorded Sex Assigned at Female 01/26/2022 10:31 AM EDT Legal Sex Female 10:31 AM EDT Gender Identity Female 01/26/2022 10:31 AM EDT Sexual Orientation Choose not to disclose 2021 10:31 AM EDT Last Filed Vital Signs Vital Sign Reading Time Taken Comments Blood Pressure 124/82 09/09/2023 3:06 PM EDT Pulse 74 09/09/2023 3:06 PM EDT Temperature - - Respiratory Rate - - Oxygen Saturation - - Inhaled Oxygen Concentration - - Weight - - Height - - Body Mass Index - - Plan of Treatment Health Maintenance Due Date Last Done Comments Depression Screening 1980 HIV Screening 1980 SDOH Screening 1980 Alcohol/Substance Use Screening 1992 Family Planning (PISQ) 12/13/1995 Hepatitis C Screening 1998 DTaP/Tdap/Td Vaccines (1 - Tdap) 12/13/1999 Hepatitis B Vaccines (1 of 3 - 19+ 3-dose series) 12/13/1999 Pap Smear 2001 Cervical Cancer Screening 2010 HPV/Cotest 2010 Mammogram 2020 Dental X-Ray: Full Mouth 10/24/2023 10/22/2020, 11/0 08/2016 COVID-19 Vaccine ( season) 2023 01/14/2022, 07/01/2020, 06/10/2020 Influenza Vaccine (#1) 2023 , 03/25/2022, 01/21/2021 Dental Oral Exam 03/11/2024 09/09/2023, , 10/22/2020, Additional history exists Dental Prophylaxis 03/11/2024 09/09/2023, 0 08/18/2021, 10/22/2020, Additional history exists Tobacco Screening 09/08/2024 09/09/2023 Dental X-Ray: Bitewings 09/09/2024 09/09/19 24, 10/22/2020, 07/18/2018, Additional history exists Zoster Vaccines (1 of 2) 2030 RSV Patients and Patients Aged 60 years or older (1 - 1-dose 75+ series) 12/13/2055 HIB Vaccines Aged Out No longer eligi ble based on patient's age to complete this topic HPV Vaccines Aged Out No longer eligi ble based on patient's age to complete this topic Hepatitis A Vaccines Aged Out No long er eligible based on patient's age to complete this topic IPV Vaccines Aged Out No longer eligi ble based on patient's age to complete this topic Meningococcal Vaccine Aged Out No meredith rose eligible based on patient's age to complete this topic Pneumococcal Vaccine: Pediatrics (0 to 5 Years) and At-Risk Patients (6 to 49) Years) Aged Out No longer eligible based on patient's age to complete this topic RSV under 20 months Aged Out No longe r eligible based on patient's age to complete this topic Rotavirus Vaccines Aged Out No longer eligible based on patient's age to complete this topic Procedures Procedure Name Priority Date/Time Associated Diagnosis Comments Full PROPHYLAXIS - ADULT Routine 024 3:00 PM EDT Dental calculus BITEWINGS - 4 RADIOGRAPHIC IMAGES Routine 09/09/2023 3:00 PM EDT Dental calculus PERIODIC ORAL EVALUATION - ESTABLISHED PATIENT Routine 09/09/2023 3:00 PM EDT INTRAORAL - COMPLETE SERIES OF RADIOGRAPHIC IMAGES Routine 10/22/2020 12:00 AM EDT from Last 3 Months or Most Recently Relevant to Health Maintenance Insurance [address] [address] [facility] MEDICAID STAND [address]ULT [address] [address]
--- OUTSIDE RECORDS SUMMARY | 2024-07-19 13:02 | XMS_ITS | Encounter Summary ---
Author Organization [id number] [facility] Address [address] [place] [address] [address] [place] [address] Care Team Providers Care Collections Analyst Name Role Phone Unavailable Primary Care Provider Unavailabl e Encounter Details Date Type Department Care Team (Latest Contact Info) Description 08/18/2021 Abstract [facility] CONVERSIONS Dental, Provider, DDS Social History Tobacco Use Types Packs/Day Years Used Date Smoking Tobacco: Never Assessed Comments Unknown Sex and Gender Information Value Date Recorded Sex Assigned at Female 01/26/2022 10:31 AM EDT Legal Sex Female 10:31 AM EDT Gender Identity Female 01/26/2022 10:31 AM EDT Sexual Orientation Choose not to disclose 2021 10:31 AM EDT documented as of this encounter Plan of Treatment Not on file documented as of this encounter Visit Diagnoses Not on filedocumented in this encounter
--- OUTSIDE RECORDS SUMMARY | 2024-07-19 13:02 | XMS_ITS | Encounter Summary ---
Author Organization [employer] [facility] Address [address] [place] [address] [address] [place] [address] Care Team Providers Care Field Sales Executive Name Role Phone Unavailable Primary Care Provider Unavailabl e Encounter Details Date Type Department Care Team (Latest Contact Info) Description 10/22/2020 Abstract [facility] CONVERSIONS Dental, Provider, DDS Social History Tobacco [...]
--- OUTSIDE RECORDS SUMMARY | 2024-07-19 13:02 | XMS_ITS | Encounter Summary ---
Author Organization [facility] Address [address] [place] [address] [address] [place] [address] Care Team Providers Care Fire Equipment Repairer Inspector Name Role Phone Unavailable Primary Care Provider Unavailabl e Encounter Details Date Type Department Care Team (Latest Contact Info) Description 07/18/2018 Abstract [facility] CONVERSIONS Dental, Provider, DDS Social History Tobacco [...]
--- OUTSIDE RECORDS SUMMARY | 2024-07-19 13:02 | XMS_ITS | Encounter Summary ---
Author Organization [employer] [facility] Address [address] [place] [address] 7 [place] [address] Care Team Providers Care Baby Registry Sales Consultant Name Role Phone Unavailable Primary Care Provider Unavailabl e Reason for Visit * Reason Comments Med Refill Encounter Details Date Type Department Care Team (Late st Contact Info) Description 11/15/2023 Refill [facility] [address] [place] [address] Aditya Benitez DDS [address] [place] [address] Social History Tobacco Use Types Packs/Day Years Used Date Smoking Tobacco: Never Smokeless Tobacco: Never Comments Unknown Sex and Gender Information Value Date Recorded Sex Assigned at Female 01/26/2022 10:31 AM EDT Legal Sex Female 10:31 AM EDT Gender Identity Female 01/26/2022 10:31 AM EDT Sexual Orientation Choose not to disclose 2021 10:31 AM EDT documented as of this encounter Miscellaneous Notes * Telephone Encounter - Jhon Fuentes DMD - 11/15/2023 7:58 AM EDT Please follow up with Dr. Benitez documented in this encounter Plan of Treatment Not on file documented as of this encounter Visit Diagnoses Not on filedocumented in this encounter
== END 2024-07-19 10:53 | disposition home or self-care (01) ==
LOC: HO.XRAY 10:52
PROVIDERS: PCP Internal Medicine; Visit Provider Internal Medicine
DX: M79.671 Pain in right foot (principal); M79.672 Pain in left foot
CPT/HCPCS: 73630

== ENCOUNTER → 2024-07-19 10:56 | Outpatient (BNV) | payer OTHER, SELFPAY | PROVIDERS: PCP Internal Medicine; Visit Provider Radiology Vascular & Interventional Radiology | DX: M79.671 Pain in right foot (principal) | CPT/HCPCS: 73630 ==

== ENCOUNTER 2024-07-20 08:16 | Outpatient (REF) | payer OTHER, SELFPAY ==
[2024-07-20 09:15] LABS: Albumin Level 4.3 g/dL (3.5-5.0); Alkaline Phosphatase 57 U/L (39-117); Anion Gap 10 (12-20); Bilirubin Total 0.6 mg/dL (0.0-1.0); Blood Urea Nitrogen 10 mg/dL (9-16); Calcium 9.2 mg/dL (8.4-10.2); Carbon Dioxide 26 mmol/L (22-29); Chloride 107 mmol/L (96-108); Cholesterol 152 mg/dL (<200); Estimated Glomerular Filt Rate > 60; Glucose Fasting 102 mg/dL (60-99); HDL Cholesterol 52 mg/dL (>40); LDL Cholesterol Calculated 84 mg/dL (<100); Potassium 4.1 mmol/L (3.3-5.1); Sodium 139 mmol/L (135-145); Total Protein 7.1 g/dL (6.5-8.0); Triglycerides 80 mg/dL (<150)
[2024-07-20 09:32] LABS: Alanine Aminotransferase 31 U/L (0-31); Aspartate Amino Transferase 34 U/L (5-31); Vitamin D 25-OH Total 34.1 ng/mL (>30)
== END 2024-07-20 08:17 | disposition home or self-care (01) ==
LOC: HO.LAB 08:16
PROVIDERS: PCP Internal Medicine; Visit Provider Internal Medicine
DX: Z00.00 Encounter for general adult medical examination without abnormal findings (principal); E55.9 Vitamin D deficiency, unspecified; E78.5 Hyperlipidemia, unspecified
CPT/HCPCS: 36415; 80053; 80061; 82306

== ENCOUNTER 2024-09-14 10:53 | Outpatient (REF) | payer OTHER, SELFPAY ==
[2024-09-14 20:21] LABS: Bacterial Vaginosis PCR NEGATIVE (Negative); Candida Group PCR NOT DETECTED (Not Detect); Candida glab krusei PCR NOT DETECTED (Not Detect); Trichomonas vaginalis PCR NOT DETECTED (Not Detect)
[2024-09-14 21:21] LABS: CT PCR NOT DETECTED (Not Detect.); NG PCR NOT DETECTED (Not Detect.)
== END 2024-09-14 10:54 | disposition home or self-care (01) ==
LOC: HO.LNP 10:53
PROVIDERS: PCP Internal Medicine; Visit Provider Advanced Practice Midwife
DX: Z01.419 Encounter for gynecological examination (general) (routine) without abnormal findings (principal); R10.2 Pelvic and perineal pain; N93.9 Abnormal uterine and vaginal bleeding, unspecified
CPT/HCPCS: 81003; 81515; 87491; 87591; 99212; 99396

== ENCOUNTER 2024-09-14 10:53 | Outpatient (AMB) | payer OTHER, SELFPAY ==
--- NOTE | 2024-09-14 10:55 | A.OFFVIS_ITS ---
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 Two closely spaced menses in June. Heavy bleeding 3-4 days out of 6. Currently not is sexually active. She denies vaginal itching or irritation. She tries to eat healthy and stays active with exercise-occasional. Denies family history of breast, ovarian or colon cancer. Last pap smear 2020, negative. Mammogram: 2023. History of heart palpitations with Clementina. [facility] Medical History (Updated 09/14/24 @ 11:30 by Laurel Sanchez CNM) Pelvic pain PCOS (polycystic ovarian syndrome) Hair loss Morbid obesity Surgical History Hx of section History of tonsillectomy Family History Father Hypertension Mother Hypertension Glaucoma Sister Diabetes Paternal Uncle FH: prostate cancer Social History Housing: Apartment Alcohol intake: current Alcohol intake frequency: holidays/special occasions only Alcohol type: beer and wine Patient Tobacco Use Status: Never used Tobacco e-Cigarette/Vaping Use: Never Used Second Hand Smoke Exposure: No service: No Current occupational status: employed Current occupational exposures/hazards: No Sexual orientation: Straight/Heterosexual Gender identity: Female Cognitive needs: No Hearing needs: No Vision needs: No Female Reproductive History Menstrual Age of Menarche: 11 Duration of menses: 3-5 days Date of last menstrual period: 09/04/24 control method: none Total pregnancies: 1 Full term: 1 Number of Living Children: 1 Date of last pap smear: 10/24/20 (neg pap and hpv) Date of Mammogram: 02/07/24 (Birad 1) Review of Systems Const All systems reviewed & are unremarkable except as noted in HPI and below Reports as per HPI Eyes Reports no additional complaints ENT Reports no additional complaints Card Reports no additional complaints Resp Reports no additional complaints GI Reports as per HPI and Reports no additional complaints Reports as per HPI Musc Reports no additional complaints Skin/Breast Reports as per HPI Neuro Reports no additional complaints Psych Reports no additional complaints Endo Reports no additional complaints Gerardo/Lymph Reports no additional complaints Aller/Immun Reports no additional complaints Physical Exam Vital Signs: Last Vital Signs BP 106/70 09/14/24 10:57 BMI result Body Mass Index 42.9 Const General: cooperative, healthy appearing, no acute distress, well developed and alert Orientation/consciousness: patient oriented x3 HEENT Head: Yes normal to inspection Eyes General: appearance normal, both eyes and all related structures Neck Neck: Yes normal visual inspection Thyroid: Thyroid normal Chest Chest palpation & inspection: normal inspection of the chest and other (no puckering, dimpling, peau de orange, retraction, discharge, masses) Breast/axilla inspection: normal inspection of the breasts Breast/axilla palpation: normal palpation of the breasts Resp Effort & Inspection: normal respiratory effort GI Inspection: Yes normal to inspection Palpation (GI): Soft to palpation Rectal Exam - Female: deferred General: Yes bladder normal to palpation External Female Exam: normal external appearance and normal appearance of the urethra Speculum Exam - Vagina: normal appearance of the vagina (Deep positioning of cervix), normal palpation and normal vaginal discharge Speculum Exam - Cervix: normal appearance of the cervix and normal palpation Bimanual exam- vagina & uterus: normal bimanual exam, normal palpation, uterine size normal, bladder normal to palpation, normal palpation and non-tender Bimanual Exam- Adnexa, other: no masses Skin General skin exam: no rashes or lesions noted Rashes: no rashes Neuro General: patient oriented x3 Cognition (Neuro): normal cognition Extrem General: Yes normal to inspection Psych Attitude: cooperative Thought process: Normal thought process present Results AMB Urinalysis, Automated UA Leukoctes 0 Paloma/uL Last Edit by LUIS Herndon on 09/14/24 11:58 UA Nitrite Negative Last Edit by Amna Bal Ricardo on 09/14/24 11:58 UA Urobilinogen 0 mg/dL Last Edit by Amna Bal [facility] on 09/14/24 11:5 8 UA Protein 0.5 mg/dL Last Edit by Amna Bal [facility] on 09/14/24 11:58 UA pH 6.0 Last Edit by Amna Bal [facility] on 09/14/24 11:58 UA Blood 0 Alek/uL Last Edit by Amna Bal [facility] on 09/14/24 11:58 UA Specific [place] 1.015 Last Edit by Amna Bal [facility] on 09/14/24 11:58 UA Ketone Negative Last Edit by Amna Bal [facility] on 09/14/24 11:58 UA Bilirubin 0 mg/dL Last Edit by Amna Bal [facility] on 09/14/24 11:58 UA Glucose 0 mg/dL Last Edit by Amna Bal [facility] on 09/14/24 11:58 Results Reviewed Results Reviewed: Laboratory Last Values Urine pH (Auto) 6.0 09/14/24 11:41 Specific [place] (Auto) 1.015 09/14/24 11:41 Urine Protein (Auto) 0.5 mg/dL 09/14/24 11:41 Glucose (UA)(Auto) 0 mg/dL 09/14/24 11:41 Urine Ketones (Auto) Negative 09/14/24 11:41 Urine Blood (Auto) 0 Alek/uL 09/14/24 11:41 Urine Nitrite (Auto) Negative 09/14/24 11:41 Urine Bilirubin (Auto) 0 mg/dL 09/14/24 11:41 Urine Urobilinogen (Auto) 0 mg/dL 09/14/24 11:41 Leukocyte Esterase (Auto) 0 Paloma/uL 09/14/24 11:41 Assessment & Plan Assessment & Plan (1) Abnormal uterine bleeding (AUB): Code(s): N93.9 - Abnormal uterine and vaginal bleeding, unspecified Category: Medical Plan: Workup for AUB to include lab work, Pap obtained, pelvic ultrasound, counseled regarding endometrial biopsy. The patient expressed understanding and agreement with the plan of care. All of her questions and concerns were addressed to the best of my ability. (2) Pain in pelvis: Code(s): R10.2 - Pelvic and perineal pain Plan: GC chlamydia and BV panel obtained ultrasound ordered follow up pending results for final plan of care. Urine dip is negative. The patient expressed understanding and agreement with the plan of care. All of her questions and concerns were addressed to the best of my ability. Total time I personally spent on visit and management today: ?20 minutes. Time spent included review of pertinent office notes in the electronic health record; review of laboratory and imaging results; review of personal family medical history; performing physical exam; discussing diagnosis and plan of care with the patient; documenting the encounter in the EMR. This note is constructed using voice recognition software. While every effort has been made to ensure accuracy, director of infection control errors may have been included. (3) Encounter for annual routine gynecological examination: Code(s): Z01.419 - Encounter for gynecological examination (general) (routine) without abnormal findings Category: Medical Plan Discussed: Current recommendations for pap smears per ASCCP guidelines. Breast awareness and periodic breast exams. Mammogram yearly. Maintain a healthy lifestyle including a well balanced diet and routine exercise. Use condoms for STI and prevention. Patient verbalizes understanding and agrees to the plan of care. She was given opportunity to ask questions and all questions were answered to the best of my ability. 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 This note is constructed using voice recognition software. While every effort has been made to ensure accuracy, director of infection control errors may have been included. Orders: Orders US pelvic and transvaginal Today N93.9 - Abnormal uterine and vaginal bleeding, unspecified, R10.2 - Pelvic and perineal pain CT NG by PCR Today R10.2 - Pelvic and perineal pain Thyroid Stimulating Hormone Today N92.1 - Excessive and frequent menstruation with irregular cycle, N93.9 - Abnormal uterine and vaginal bleeding, unspecified Complete Blood Count no Diff Today N93.9 - Abnormal uterine and vaginal bleeding, unspecified Bacterial Vaginosis Panel Today R10.2 - Pelvic and perineal pain AMB Urinalysis Automated Today R10.2 - Pelvic and perineal pain Coding Level of Care Code Est Pt Level 2 (81600) Est Pt Prev Care 40-64y(48720) Diagnoses Abnormal uterine bleeding (AUB) N93.9 Pain in pelvis R10.2 Encounter for annual routine gynecological examination Z01.419
[2024-09-14 10:57] VITALS: BP 106/70; BMI 42.9
--- OUTSIDE RECORDS SUMMARY | 2024-09-14 12:27 | XMS_ITS | Encounter Summary ---
Author Organization [employer] [facility] Address [address] [place] [address] 7 [place] [address] Care Team Providers Care Night Nurse Name Role Phone Unavailable Primary Care Provider Unavailabl e Encounter Details Date Type Department Care Team (Latest Contact Info) Description 08/18/2021 Abstract [facility] CONVERSIONS Dental, Provider, DDS Social History [...]
== END 2024-09-14 11:50 | disposition home or self-care (01) ==
LOC: HO.HWS 10:53
PROVIDERS: PCP Internal Medicine; Visit Provider Advanced Practice Midwife
DX: N93.9 Abnormal uterine and vaginal bleeding, unspecified (principal); R10.2 Pelvic and perineal pain; Z01.419 Encounter for gynecological examination (general) (routine) without abnormal findings
CPT/HCPCS: 99212; 99396; 99459

== ENCOUNTER 2024-09-14 11:41 | Outpatient (REF) | payer OTHER, SELFPAY | END 2024-09-14 11:42 | disposition home or self-care (01) | LOC: HO.LAB 11:41 | PROVIDERS: Visit Provider Advanced Practice Midwife | DX: Z13.89 Encounter for screening for other disorder (principal) ==

== ENCOUNTER 2024-10-25 13:43 | Outpatient (REF) | payer OTHER, SELFPAY ==
--- NOTE | ~2024-10-25 | US_ITS ---
EXAMINATION: US PELVIS CLINICAL INFORMATION: N93.9 - Abnormal uterine and vaginal bleeding, unspecified COMPARISON: May 20, 2022 TECHNIQUE: Ultrasound of the pelvis is performed using both transabdominal and transvaginal transducers along with Doppler. Transvaginal imaging is performed due to inadequate visualization transabdominally. FINDINGS: Uterus: The uterus is anteverted and measures 9.2 x 4.6 x 5.8 cm. The double wall endometrial thickness is 5 mm. The uterus is smooth in contour and has normal myometrial echogenicity. No visible fibroid. Adnexa: Both ovaries are visualized. There is normal color flow to the adnexa. There is no ovarian torsion. There is no pelvic ascites or fluid collection. Right ovary measures 2.7 x 1.9 x 1.5 cm. Left ovary measures 4.1 x 2.5 x 2.1 cm. Dominant follicle is noted. US/US pelvic and transvaginal IMPRESSION: Unremarkable pelvic ultrasound. Electronically signed by: Stephan Bone MD 10/25/2024 02:24 PM EDT
--- OUTSIDE RECORDS SUMMARY | 2024-10-25 14:22 | XMS_ITS | Encounter Summary ---
Author Organization [employer] [facility] Address [address] [place] [address] 7 [place] [address] Care Team Providers Care Assembler Truck Trailer Name Role Phone Unavailable Primary Care Provider Unavailabl e Encounter Details Date Type Department Care Team (Latest Contact Info) Description 08/18/2021 Abstract [facility] CONVERSIONS Dental, Provider, DDS Social History Tobacco [...]
[2024-10-25 15:03] LABS: Hematocrit 39.6 % (37.0-47.0); Hemoglobin 13.6 g/dl (12.0-16.0); Mean Corpuscular HGB Conc 34.3 g/dl (31.0-35.0); Mean Corpuscular Hemoglobin 29.1 pg (27.0-33.0); Mean Corpuscular Volume 84.8 fL (80.0-98.0); NRBC Abs Auto 0.000 X10*3/uL (0.0-0.012); NRBC Pct Auto 0.0 /100WBC (0.0-0.2); Platelet Count 297 X10*3/uL (160-400); Red Blood Count 4.67 X10*6/uL (4.20-5.50); White Blood Count 10.5 X10*3/uL (4.8-10.8)
[2024-10-25 16:13] LABS: Thyroid Stimulating Hormone 2.55 uIU/mL (0.32-4.0)
== END 2024-10-25 13:44 | disposition home or self-care (01) ==
LOC: HO.US 13:43
PROVIDERS: PCP Internal Medicine; Visit Provider Advanced Practice Midwife
DX: N93.9 Abnormal uterine and vaginal bleeding, unspecified (principal); R10.2 Pelvic and perineal pain; N92.1 Excessive and frequent menstruation with irregular cycle
CPT/HCPCS: 36415; 76830; 76856; 84443; 85027

== ENCOUNTER → 2024-10-25 13:47 | Outpatient (BNV) | payer OTHER, SELFPAY | PROVIDERS: PCP Internal Medicine; Visit Provider Radiology Diagnostic Radiology | DX: N93.9 Abnormal uterine and vaginal bleeding, unspecified (principal) | CPT/HCPCS: 76830; 76856 ==

== ENCOUNTER 2025-03-28 11:17 | Outpatient (AMB) | payer OTHER, SELFPAY ==
[2025-03-28 11:59] VITALS: BP 114/70; PULSE 79; RESP 18; O2SAT 98; BMI 46.0
--- NOTE | 2025-03-28 11:59 | A.OFFPC_ITS ---
Vital Signs 03/28/25 11:59 Height 5 ft 4 in Weight 268 lb BMI 46.0 BP 114/70 Blood Pressure Location Lt brachial Position Sitting Respiration 18 Pulse 79 Pulse Source Pulse Oximeter Temp Source Temporal Artery Scan Pulse Oximetry (%) 98 Oxygen Delivery Method Room Air Intake Visit Reasons: Flu like symptoms Blender / Cook Required: No Accompanied by: Self / Same As Patient Allergies drospirenone (From [facility] (28)) Adverse Reaction (Unknown, Verified 03/28/25 12:01) Palpitations ethinyl estradiol (From [facility] (28)) Adverse Reaction (Unknown, Verified 03/28/25 12:01) Palpitations Medication List - Last Reconciled 03/28/25 by Perlita Sandra MD atorvastatin 10 mg PO BEDTIME 90 days cholecalciferol (vitamin D3) 25 mcg PO DAILY 90 days fluticasone propionate 50 mcg/actuation (Allergy Relief (fluticasone)) 1 spray intranasal DAILY 5 days loratadine (Claritin) 10 mg PO DAILY meloxicam 15 mg PO DAILY 30 days sodium chloride 0.9% (Simply Saline) 2 sprays intranasal QID PRN spironolactone 100 mg PO DAILY Tobacco use date assessed: 03/28/25 Dental Screening Dental Screen Date: 03/28/25 Did you have a dental visit in the last 12 months?: No Did you have a dental problem in the last 6 months where you did not have access to dental care?: No Was dental information given to patient?: No HPI HPI Comments History of Present Illness Details The patient is a 44 year old female presenting with sinus pressure, body aches, chills, and cough. Her symptoms started on Wednesday and include nasal congestion, rhinorrhea, body aches, headaches, and chills at night. She also reports a cough that is worse at night. Denies heartburn Her current medications are atorvastatin 10 mg, spironolactone 100 mg, meloxicam 15 mg as needed, and vitamin D. [facility] Medical History (Updated 09/14/24 @ 11:30 by Laurel Sanchez CNM) Pelvic pain PCOS (polycystic ovarian syndrome) Hair loss Morbid obesity Surgical History Hx of section History of tonsillectomy Family History Father Hypertension Mother Hypertension Glaucoma Sister Diabetes Paternal Uncle FH: prostate cancer Social History Housing: Apartment Alcohol intake: current Alcohol intake frequency: holidays/special occasions only Alcohol type: beer and wine Patient Tobacco Use Status: Never used Tobacco e-Cigarette/Vaping Use: Never Used Second Hand Smoke Exposure: No service: No Current occupational status: employed Current occupational exposures/hazards: No Sexual orientation: Straight/Heterosexual Gender identity: Female Cognitive needs: No Hearing needs: No Vision needs: No Female Reproductive History Menstrual Age of Menarche: 11 Questionnaire Thrive Questionnaire Date Thrive assessed: 04/06/24 ANAND-7 AMB Questionnaire ANAND-7 Date ANAND - 7 assessed: 04/06/24 Source: Developed by Drs. Nael Hooker, Maye Farley, Edmar Pena and colleagues, with an educational fred from [employer]. Physical exam (Primary Care) Vital Signs: Last Vital Signs Pulse 79 03/28/25 11:59 Resp 18 03/28/25 11:59 BP 114/70 03/28/25 11:59 Pulse Ox 98 03/28/25 11:59 Oxygen Delivery Method Room Air 03/28/25 11:59 General: Well-appearing, alert, oriented ?3, in no acute distress. HEENT: Normocephalic, atraumatic, PERRLA, EOMI, no scleral icterus. Nares patent, nasal mucosa erythema, turbinate enlargement, no discharge. Mild posterior oropharyngeal erythema. Neck Supple. No carotid bruits. Cardiovascular: RRR, S1-S2 appreciated, no murmurs, rubs or gallops. Respiratory: Lungs clear to auscultation bilaterally, no wheezes, rales or rhonchi. BMI result Body Mass Index 46.0 Tobacco/Smoking Status: Tobacco use Status Tobacco use date assessed 03/28/25 03/28/25 12:05 Patient Tobacco Use Status Never used Tobacco 03/28/25 12:05 e-Cigarette/Vaping Use Never Used 03/28/25 12:05 Thrive Assessment: Date of Thrive Assessment Date Thrive assessed 04/06/24 03/28/25 12:05 Coding Level of Care Code Est Pt Level 3 (00133) Diagnoses Upper respiratory tract infection, unspecified type J06.9 URI type: unspecified URI Assessment & Plan Assessment & Plan (1) URI (upper respiratory infection): Code(s): J06.9 - Acute upper respiratory infection, unspecified Qualifiers: URI type: unspecified URI Qualified Code(s): J06.9 - Acute upper respiratory infection, unspecified Plan: Patient presenting with symptoms of upper respiratory infection, possible postnasal drip component. No fever or chills. Test for COVID/flu/RSV Start Flonase nasal spray once daily for 5 days Loratadine 10 mg daily Nasal saline spray q.i.d. as needed May take meloxicam PRN aches and pains, avoid using with other NSAIDs. Take with food and glass of water. May use Tylenol with meloxicam if needed. Orders: Orders SARS-CoV2/FLU/RSV Today R05.9 - Cough, unspecified, R09.81 - Nasal congestion Medications: New sodium chloride 0.9% (Simply Saline) 2 sprays intranasal QID PRN 45 grams 0RF dry nasal passages fluticasone propionate 50 mcg/actuation (Allergy Relief (fluticasone)) administer into each nostril 1 spray intranasal DAILY 16 grams 0RF 5 days loratadine (Claritin) 10 mg PO DAILY 30 tabs 0RF
--- OUTSIDE RECORDS SUMMARY | 2025-03-28 12:53 | XMS_ITS | Clinical Summary ---
Author Organization [employer] Address [address] [place] [address] [address] [place] [address] Care Team Providers Care Furniture Sprayer Name Role Phone Unavailable Primary Care Provider [...] 09/09/2023 MPDS (myofascial pain dysfunction syndrome) 08/27 Encounters Date Type Department Care Team Description 03/27/2025 Telephone [facility] [address] [place] [address] Cynthia Thomas from Last 3 Months Social History Tobacco Use Types Packs/Day Years Used Date Smoking Tobacco: Never Smokeless Tobacco: Never Tobacco Cessation:Counseling Given: Not Answered Comments Unknown Sex and Gender Information Value Date Recorded Sex Assigned at Female 01/26/2022 10:31 AM EDT Legal Sex Female 10:31 AM EDT Gender Identity Female 01/26/2022 10:31 AM EDT Sexual Orientation Choose not to disclose 10/31/ 2022 10:31 AM EDT Last Filed Vital Signs [...] Comments Depression Screening 1980 HIV Screening 1980 Lipid Panel 1980 SDOH Screening 1980 Disability Screening 1980 Alcohol/Substance Use Screening 1992 Family Planning (PISQ) 12/13/1995 HPV Vaccines (1 - 3-dose series) 12/13/1995 Hepatitis C Screening 1998 DTaP/Tdap/Td Vaccines (1 - Tdap) 12/13/1999 Hepatitis B Vaccines (1 of 3 - 19+ 3-dose series) 12/13/1999 Pap Smear 2001 Cervical Cancer Screening 2010 HPV/Cotest 2010 Mammogram 2020 Dental X-Ray: Full Mouth 10/24/2023 10/22/2020, 11/0 08/2016 Dental Oral Exam 03/11/2024 09/09/2023, , 10/22/2020, Additional history exists Dental Prophylaxis 03/11/2024 09/09/2023, 0 08/18/2021, 10/22/2020, Additional history exists Tobacco Screening 09/08/2024 09/09/2023 Dental X-Ray: Bitewings 09/09/2024 09/09/19 24, 10/22/2020, 07/18/2018, Additional history exists COVID-19 Vaccine (2024- season) 2024 01/14/2022, 07/01/2020, 06/10/2020 Influenza Vaccine (#1) 2024 , 03/25/2022, 01/21/2021 Zoster Vaccines (1 of 2) 2030 RSV [...] patient's age to complete this topic Meningococcal B Vaccine Aged Out No l onger eligible based on patient's age to complete this topic Meningococcal Vaccine Aged Out No meredith rose eligible based on patient's age to complete this topic Pneumococcal Vaccine: Pediatrics (0 to 5 Years) and At-Risk Patients (6 to 49) Years Aged Out No longer eligible based on [...] Most Recently Relevant to Health Maintenance Insurance [facility] STANDARD DENTAL-[facility] MEDICAID STAND [address]ULT [address] [address] [address] [place] [address], [place] [address]
--- OUTSIDE RECORDS SUMMARY | 2025-03-28 12:53 | XMS_ITS | Encounter Summary ---
Author Organization [employer] [facility] Address [address] [place] [address] [address] [place] [address] Care Team Providers Care Life Insurance Agent Name Role Phone Unavailable Primary Care Provider Unavailabl e Reason for Visit * Reason Comments Med Refill Encounter Details Date Type Department Care Team (Late st Contact Info) Description 11/15/2023 Refill [facility] [address] [place] [address] Aditya Benitez DDS [address] [place] [address] Social History Tobacco Use Types Packs/Day Years [...]
--- OUTSIDE RECORDS SUMMARY | 2025-03-28 12:53 | XMS_ITS | Encounter Summary ---
Author Organization [facility] Address [address] [place] [address] [address] [place] [address] Care Team Providers Care Hand Wrapper Operator Name Role Phone Unavailable Primary Care Provider Unavailabl e Encounter Details Date Type Department Care Team (Latest Contact Info) Description 08/18/2021 Abstract [facility] CONVERSIONS Dental, Provider, DDS Social History [...]
--- OUTSIDE RECORDS SUMMARY | 2025-03-28 12:53 | XMS_ITS | Encounter Summary ---
Author Organization [id number] Address [address] [place] [address] [address] [place] [address] Care Team Providers Care Intervention Specialist Name Role Phone Unavailable Primary Care Provider Unavailabl e Encounter Details Date Type Department Care Team (Late st Contact Info) Description 03/27/2025 Telephone [facility] ADULT DENTAL [address] [place] [address] Martha, Cynthia [address] [place] [address] Social History Tobacco Use Types Packs/Day Years [...] encounter Miscellaneous Notes * Telephone Encounter - Remi Castellano - 03/27/2025 9:56 AM EST Called patient to schedule a cleaning appointment but there was no answer so I left a voicemail. documented in this encounter Plan of Treatment Not on file documented as of this encounter Visit Diagnoses Not on filedocumented in this encounter
--- OUTSIDE RECORDS SUMMARY | 2025-03-28 12:53 | XMS_ITS | Encounter Summary ---
Author Organization [employer] [facility] Address [address] [place] [address] [address] [place] [address] Care Team Providers Care Criminology Professor Name Role Phone Unavailable Primary Care Provider Unavailabl e Encounter Details Date Type Department Care Team (Latest Contact Info) Description 10/22/2020 Abstract [facility] CONVERSIONS Dental, Provider, DDS Social [...]
--- OUTSIDE RECORDS SUMMARY | 2025-03-28 12:53 | XMS_ITS | Encounter Summary ---
Author Organization [employer] [facility] Address [address] [place] [address] [address] [place] [address] Care Team Providers Care Coo Name Role Phone Unavailable Primary Care Provider Unavailabl e Encounter Details Date Type Department Care Team (Latest Contact Info) Description 07/18/2018 Abstract [facility] CONVERSIONS Dental, Provider, DDS Social History [...]
== END 2025-03-28 12:26 | disposition home or self-care (01) ==
LOC: HO.HMCH 11:17
PROVIDERS: PCP Internal Medicine; Visit Provider Student in an Organized Health Care Education/Training Program
DX: J06.9 Acute upper respiratory infection, unspecified (principal)

== ENCOUNTER 2025-03-28 11:17 | Outpatient (REF) | payer OTHER, SELFPAY ==
[2025-03-28 14:20] LABS: Resp Syncy Virus RNA Qual PCR NEGATIVE (Negative); SARS COV2 PCR INHOUSE NEGATIVE (Negative)
== END 2025-03-28 11:18 | disposition home or self-care (01) ==
LOC: HO.LAB 11:17
PROVIDERS: PCP Internal Medicine; Visit Provider Student in an Organized Health Care Education/Training Program
DX: J06.9 Acute upper respiratory infection, unspecified (principal); R05.9 Cough, unspecified; R09.81 Nasal congestion
CPT/HCPCS: 87637